=== PATIENT | male | born 1960 | race Caucasian/White ===

== ENCOUNTER 2018-11-14 20:30 | Outpatient (CLI) | payer BC | END 2018-11-14 20:31 | disposition home or self-care (01) | LOC: SLEEPLAB 20:30 | PROVIDERS: ATTEND Family Medicine | DX: G47.33 Obstructive sleep apnea (adult) (pediatric) (principal) | CPT/HCPCS: 95811 ==

== ENCOUNTER 2020-06-11 08:24 | Outpatient (CLI) | payer BC ==
--- NOTE | 2020-06-11 12:15 | MRI ---
MRI PELVIS: DATE: 06/11/2020 PROVIDED CLINICAL HISTORY: Bilateral hip pain. FINDINGS: Regional marrow and muscular signal appear normal. Alignment appears anatomic. Joint spaces appear pr eserved. The amount of fluid within each hip joint appears physiologic. The bilateral hip flexor, abductor, adductor, and hamstring tendons demonstrate an intact MR appearan ce. The acetabular sania and femoral-acetabular articular cartilage are suboptimally evaluated in the abs ence of joint distention, but appear grossly normal. The courses of the regional major neurovascular structures appear unremarkable. Small bilateral fat-containing inguinal hernias are demonstrated. IMPRESSION: No evidence for internal derangement. POS: AH
== END 2020-06-11 08:25 | disposition home or self-care (01) ==
LOC: TBSIIMAG 08:24
PROVIDERS: ATTEND Family Medicine
DX: M25.551 Pain in right hip (principal); M25.552 Pain in left hip
CPT/HCPCS: 72195